=== PATIENT | male | born 1985 | race Caucasian/White ===

== ENCOUNTER → 2018-07-12 | Outpatient (CLI) | payer OTHER ==
--- NOTE | 2018-07-12 13:08 | XCELERA REPORT ---
[address] [address] Lower Extremity Venous Evaluation Procedure: Color flow and duplex imaging of the veins of the right lower extremity as well as the left Common Femoral vein. Right Sided Venous Evaluation Infrageniculate vessels, limited interrogation due to bandages. Normal vessel filling wall to wall, compression and augmentation as well as Colour flow down to the infrageniculate veins. Left Sided Venous Evaluation The left common femoral vein is fully compressible. Spontaneous and phasic flow is present in the left common femoral vein. Interpretation Summary No duplex evidence of DVT or obstruction in the right lower extremity nor in the left Common Femoral vein. Limitations of testing noted. Name: SHANNAN FONSECA Age: 32 yrs Gender: Male : 1985 Patient Status: Outpatient Patient Location: Study Date: 07/12/2018 10:53 AM Reason For Study: RLE PAIN AND SWELLING Ordering Physician: SHRAVAN MILLER Performed By: Ajay Chauhan : SHRAVAN MILLER > Carl Miller
== END ==
LOC: SP 10:32
PROVIDERS: ATTEND Orthopaedic Surgery
DX: M79.604 Pain in right leg (principal); R22.41 Localized swelling, mass and lump, right lower limb
CPT/HCPCS: 93971